=== PATIENT | male | born 1965 | race Caucasian/White ===

== ENCOUNTER → 2022-06-26 | Outpatient (CLI) | payer BC ==
--- NOTE | 2022-06-27 08:47 | XR ---
EXAM TYPE: LUMBAR SPINE X RAY SERIES COMPARISON: NONE HISTORY: Pain TECHNIQUE: 4 views are submitted. FINDINGS: Alignment is anatomic. The pedicles are intact. The transverse processes are intact. There is no s pondylolysis or spondylolisthesis. Severe degenerative disc disease and facet arthropathy at all leve ls with anterior spurring and facet. Arthropathy of the interspinous spaces are noted. IMPRESSION: 1. Severe multilevel degenerative disc disease and facet arthropathy. Suspect multilevel foraminal im pingement.
== END | disposition home or self-care (01) ==
LOC: RADXRMAIN 16:54
PROVIDERS: ATTEND Family Medicine
DX: M51.16 Intervertebral disc disorders with radiculopathy, lumbar region (principal); M47.26 Other spondylosis with radiculopathy, lumbar region
CPT/HCPCS: 72110

== ENCOUNTER → 2022-08-09 | Outpatient (CLI) | payer BC ==
--- NOTE | 2022-08-10 09:31 | MR ---
EXAMINATION TYPE: MR lumbar spine wo con DATE OF EXAM: 08/09/2022 9:38 PM COMPARISON: Radiographs 06/26/2022. CLINICAL INDICATION:Male, 57 years old with history of M54.16 Radiculopathy, Lumbar Region; TECHNIQUE: Multi planar, multi sequence imaging was performed utilizing: T1-weighted, T2-weighted, a nd turbo inversion recovery imaging of the lumbar spine. IV Contrast: None. FINDINGS: Alignment: The lumbar vertebral bodies have preserved heights. There is straightening of the alignmen t. Cord: The conus medullaris and the distal spinal cord appear unremarkable with regards to their signa l intensity and morphology. Bones/Discs: Bony edema involving the superior endplate of L4 and to lesser sac L3. A T2/T1 signal ve rtebral body hemangioma in L3. There are scattered foci of high T1/T2 signal could represent focal fa t or hemangiomas. Multilevel degenerative disc disease is noted and most pronounced at the L3-L5. Mul tilevel disc desiccation is present. T12-L1: Central disc extrusion with mild spinal canal stenosis and cephalad migration of disc materia l 11 mm.. There is facet joint arthropathy with mild bilateral neural foraminal stenosis. L1-L2: Disc bulge and facet joint arthropathy result in mild spinal canal stenosis and moderate to se mariya bilateral neural foraminal stenosis. L2-L3: Central disc protrusion with moderate spinal canal stenosis which abuts the cauda equina nerve roots. Facet joint arthropathy with moderate bilateral neural foraminal stenosis. L3-L4: Disc bulge superimposed right and central foraminal disc extrusion with 5 mm of disc material inferior migration. This effaces the right forming nerves in the spinal canal. Facet joint arthropath y result in mild spinal canal stenosis and moderate to severe bilateral neural foraminal stenosis. L4-L5: Disc bulge and facet joint arthropathy result in mild spinal canal stenosis and moderate to se mariya bilateral neural foraminal stenosis. L5-S1: Disc bulge with small superimposed protrusion without significant spinal canal stenosis. Facet joint arthropathy with moderate to severe bilateral neural foraminal stenosis. Other findings: None. IMPRESSION: 1. L3-L4 right central disc herniation with inferior migration of disc material. This effaces the fo rming nerves in the spinal canal. 2. L2-L3 central herniation with moderate spinal canal stenosis which abuts the cauda equina. 3. T12-L1 central disc herniation with mild spinal canal stenosis. There is cephalad migration of di sc material.
== END | disposition home or self-care (01) ==
LOC: RADMRIMAIN 21:15
PROVIDERS: ATTEND Family Medicine
DX: M48.061 Spinal stenosis, lumbar region without neurogenic claudication (principal); M51.16 Intervertebral disc disorders with radiculopathy, lumbar region; M51.25 Other intervertebral disc displacement, thoracolumbar region
CPT/HCPCS: 72148

== ENCOUNTER → 2023-12-15 | Outpatient (CLI) | payer BC ==
--- NOTE | 2023-12-15 10:18 | US ---
EXAMINATION TYPE: US venous doppler duplex LE RT DATE OF EXAM: 12/15/2023 9:46 AM COMPARISON: NONE CLINICAL INDICATION: Male, 58 years old with history of R22.40 LOCALIZED SWELLING, MASS AND LUMP, UNS P RLE; No hx of DVT. Patient has had swelling x 1 week. Patient takes aspirin. SIDE PERFORMED: Right TECHNIQUE: The lower extremity deep venous system is examined utilizing real time linear array sonog jeff with graded compression, doppler sonography and color-flow sonography. VESSELS IMAGED: Common Femoral Vein Deep Femoral Vein Greater Saphenous Vein * Femoral Vein Popliteal Vein Small Saphenous Vein * Proximal Calf Veins (* superficial vessels) Right Leg: No evidence of DVT. IMPRESSION: No evidence for DVT at this time.
--- NOTE | 2023-12-15 12:19 | XR ---
EXAMINATION TYPE: XR ankle complete RT DATE OF EXAM: 12/15/2023 COMPARISON: NONE HISTORY: 58-year-old male M79.604, pain and contusions to the lower leg after injuries. TECHNIQUE: 3 views FINDINGS: Mild soft tissue swelling is present. Ankle mortise appears congruent with preservation of the distal tibiofibular overlap. Talar dome is intact. Small plantar heel spur. Some ossification john ng the plantar fascia. Subtalar joint align. Small delineation to the Achilles tendon. IMPRESSION: 1. Mild soft tissue swelling. No acute osseous abnormality seen. 2. Small plantar heel spur. Some ossification along the proximal plantar fascia suggests sequela of p rior injury. Clinically correlate.
--- NOTE | 2023-12-16 08:24 | XR ---
EXAMINATION TYPE: XR knee complete RT DATE OF EXAM: 12/15/2023 COMPARISON: NONE HISTORY: 58-year-old male M79.604, right leg pain TECHNIQUE: 3 views FINDINGS: Anterior soft tissue swelling. Trace joint effusion. Minimal degenerative spurring patellof emoral compartment. No acute fracture, subluxation, or dislocation. IMPRESSION: Anterior soft tissue swelling and trace joint effusion. No acute osseous abnormality seen.
== END | disposition home or self-care (01) ==
LOC: RADUSWWP 09:06
PROVIDERS: ATTEND Family Medicine
DX: R22.40 Localized swelling, mass and lump, unspecified lower limb (principal); M79.604 Pain in right leg; M77.31 Calcaneal spur, right foot